=== PATIENT | female | born 1945 | race Caucasian/White ===

== ENCOUNTER 2017-12-31 14:16 | Emergency (ER) | payer OTHER ==
[~2017-12-31] VITALS: Ht 160 cm; Wt 79.4 kg
[2017-12-31] MEDS ORDERED: LISINOPRIL20 MG PO (14:26)
[2017-12-31 14:40] LABS: ABSOLUTE MONOCYTES 0.3 thou/uL (0.0-1.2); ABSOLUTE NEUTROPHILS 4.5 thou/uL (1.6-8.1); BASOPHILS 0.6 %; EOSINOPHILS 0.5 %; HEMATOCRIT 43.8 % (37.0-47.0); HEMOGLOBIN 14.9 gm/dL (12.0-15.0); LYMPHOCYTES 17.5 %; MCH 31.4 pg (26.0-34.0); MCHC 34.1 g/dL (28.0-37.0); MONOCYTES 4.7 %; NUCLEATED RBCS 0 /100WBC; PLATELET COUNT* 220 thou/uL (150-400); POLYS 76.7 %; RBC 4.76 mil/uL (4.20-5.00); RDW-CV 13.8 % (10.5-14.5); WBC 5.9 thou/uL (4.0-11.0)
[2017-12-31 14:50] LABS: ANION GAP 9 mmol/L (7-16); BUN 17 mg/dL (7-18); CALCIUM 8.7 mg/dL (8.5-10.1); CHLORIDE 104 mmol/L (98-107); CO2 25 mmol/L (21-32); GLUCOSE 142 mg/dL (70-99); POTASSIUM 3.8 mmol/L (3.5-5.1); SODIUM 138 mmol/L (136-145)
[2017-12-31 14:56] LABS: ALBUMIN 3.8 g/dL (3.4-5.0); ALKALINE PHOSPHATASE 104 U/L (46-116); SGOT 13 U/L (15-37); SGPT 24 U/L (30-65); TOTAL BILIRUBIN 0.3 mg/dL (<0.1-1.0); TOTAL PROTEIN 7.6 g/dL (6.4-8.2); TROPONIN-I LEVEL <0.06 ng/mL (<0.06)
[2017-12-31 16:06] VITALS: BP 144/74
--- NOTE | 2017-12-31 18:00 | EKG ---
[place] [address] ELECTROCARDIOGRAM REPORT Name: MAURISIO RIZOELYN Room: [facility]#: [id number] Admission: 12/31/17 Attend Phys: Discharge: 12/31/17 Date of : 41 Report #: [id number] THIS REPORT FOR: //name// [facility] ED Test Date: 2017-12-31 Test Time: 14:37:40 Pat Name: KASIA RIZO Department: Room: Gender: F Vice President Education: Daisy CARPENTER : 1945 Requested By: Ness Allen Order Number: [id number] MD: Tre Loving Measurements Intervals [place] Rate: 77 P: 29 DC: 174 QRS: 1 QRSD: 91 T: 39 QT: 405 QTc: 459 Interpretive Statements Sinus rhythm No previous ECG available for comparison Electronically Signed On 12-31-2017 18:00:35 CDT by Tre Loving [email or web address] <ELECTRONICALLY SIGNED> By: Tre Loving MD, [facility] 12/31/17 1800 1437 1437 Tre Loving MD, FACC /EPI
== END 2017-12-31 16:07 | disposition home or self-care (01) ==
LOC: M.ERS 14:16
PROVIDERS: Nurse Practitioner Family
DX: I10 Essential (primary) hypertension (principal); Z88.5 Allergy status to narcotic agent